=== PATIENT | female | born 1960 | race Caucasian/White ===

== ENCOUNTER 2022-12-02 10:25 | Outpatient (REF) | payer BC, SELFPAY ==
[2022-12-02 10:43] LABS: Absolute Basophil Count 0.03 10^3/uL (0.0-0.2); Absolute Eosinophil Count 0.09 10^3/uL (0.0-0.7); Absolute Lymphocyte Count 1.27 10^3/uL (1.2-3.4); Absolute Monocyte Count 0.37 10^3/uL (0.1-0.8); Absolute Neutrophil Count 2.93 10^3/uL (1.2-6.7); Basophils % 0.6; Eosinophils % 1.9; HCT 42.1 % (36.0-46.0); HGB 14.4 g/dL (11.2-15.7); Lymphocytes % 27.1; MCH 30.5 pg (27.0-33.0); MCHC 34.2 % (32.0-36.0); MCV 89 fL (80-95); MPV 10.2 fL (8.0-11.0); Monocytes % 7.9; Neutrophils % 62.5; Platelet Count 261 10^3/uL (130-400); RBC 4.72 10^6/uL (3.93-5.22); RDW 12.5 % (11.7-14.6); RDW-SD 41.1 fL; WBC 4.69 10^3/uL (4.4-10.8)
[2022-12-04 10:48] LABS: IgE 4 IU/mL (<158)
== END 2022-12-02 10:26 | disposition home or self-care (01) ==
LOC: LBN 10:25
PROVIDERS: Visit Provider Physician Assistant Surgical
DX: R05.3 Chronic cough (principal)
CPT/HCPCS: 82785; 85025